=== PATIENT | male | born 1955 | race Caucasian/White ===

== ENCOUNTER → 2025-03-16 10:48 | Outpatient (REF) | payer OTHER, SELFPAY | LOC: HWRAD 10:48 | PROVIDERS: ATTENDING PHYSICIAN Internal Medicine Critical Care Medicine; FAMILY PHYSICIAN Family Medicine | DX: Z87.891 Personal history of nicotine dependence (principal); Z72.0 Tobacco use | CPT/HCPCS: 71271 ==

== ENCOUNTER → 2025-03-29 12:23 | Outpatient (REF) | payer OTHER, SELFPAY | LOC: PET 12:23 | PROVIDERS: ATTENDING PHYSICIAN Internal Medicine Critical Care Medicine | DX: R91.1 Solitary pulmonary nodule (principal) | CPT/HCPCS: 78815; A9552 ==

== ENCOUNTER → 2025-04-20 10:34 | Outpatient (REF) | payer OTHER, SELFPAY | LOC: HWRAD 10:34 | PROVIDERS: ATTENDING PHYSICIAN Internal Medicine Critical Care Medicine; FAMILY PHYSICIAN Family Medicine | DX: R91.1 Solitary pulmonary nodule (principal) | CPT/HCPCS: 71250 ==

== ENCOUNTER 2025-05-08 06:27 | Day surgery (SDC) | payer OTHER, SELFPAY ==
[2025-05-05 08:51] LABS: Hematocrit 41.8 % (39.0-52.0); Hemoglobin 13.2 g/dL (13.0-18.0); Mean Corp Hgb Conc. 31.6 g/dL (33.0-37.0); Mean Corpuscular Volume 86.4 fL (80.0-94.0); Platelet Count 201 10^3/uL (130-400); Red Cell Dist. Width 16.8 % (11.5-14.5)
[2025-05-05 09:04] LABS: INR 1.13; PT 14.6 Sec (11.4-14.6)
[2025-05-05 09:05] LABS: APTT 30.0 Sec (23.4-35.0)
[2025-05-05 09:19] LABS: Blood Urea Nitrogen 17 mg/dl (9-20); Calcium 9.4 mg/dl (8.4-10.2); Carbon Dioxide 29 mmol/L (22-30); Chloride 103 mmol/L (98-107); Glucose 111 mg/dl (70-99); Potassium 4.6 mmol/L (3.5-5.1); Sodium 139 mmol/L (135-145); eGFR > 60.00
[2025-05-05 13:37] VITALS: BMI 36.0
[2025-05-08] VITALS (8 sets, daily range): BP systolic 115–147; BP diastolic 66–87; BMI 36.0; BMI 37.1
== END 2025-05-08 18:43 | disposition home or self-care (01) ==
LOC: SDS 06:27
PROVIDERS: ATTENDING PHYSICIAN Internal Medicine
DX: R91.8 Other nonspecific abnormal finding of lung field (principal); R05.3 Chronic cough; J44.9 Chronic obstructive pulmonary disease, unspecified; Z87.891 Personal history of nicotine dependence
CPT/HCPCS: 31629; 31628; 31624; 31623; 31627; 31654; 71045; 76000; 80048; 85027; 85610; 85730; 87015; 87070; 87102; 87116; 87147; 87205; 88112; 88173; 88305; 94640; C1713; C1887